=== PATIENT | female | born 1965 | race African-American/Black ===

== ENCOUNTER 2023-04-08 04:06 | Day surgery (SDC) | payer OTHER ==
[2023-04-03 12:24] VITALS: BMI 31.8
[2023-04-08] MEDS ORDERED: PROPOFOL 20 ML ONE ×2 (07:17→08:07)
[2023-04-08] MEDS ORDERED: SUCCINYLCHOLINE CHLORIDE 200 MG/10 ML SYRINGE ONE (07:17)
[2023-04-08] MEDS ORDERED: ONDANSETRON 4 MG/2 ML VIAL ONE (07:18)
[2023-04-08] MEDS ORDERED: SODIUM CHLORIDE 0.9% P/F 10 ML VIAL IJ ONE (07:18)
[2023-04-08] MEDS ORDERED: ceFAZolin SODIUM 1 GM VIAL ONE (07:18)
[2023-04-08] MEDS ORDERED: LIDOCAINE HCL/PF 2% SDV 5ML VIAL ONE ×2 (07:18→08:08)
[2023-04-08] MEDS ORDERED: DEXAMETHASONE SOD PHOSPHATE 4 MG/1 ML VIAL ONE (07:18)
[2023-04-08] MEDS ORDERED: MIDAZOLAM HCL 2 MG/2 ML SINGLE DOSE VIAL ONE (07:40)
[2023-04-08] MEDS ORDERED: SEVOFLURANE 250 ML BTL ONE (07:51)
[2023-04-08] MEDS ORDERED: ACETAMINOPHEN INJECTION 100 ML IVPB ONE (07:51)
[2023-04-08] MEDS ORDERED: KETOROLAC TROMETHAMINE 30 MG/1 ML VIAL ONE (07:56)
[2023-04-08] MEDS ORDERED: FUROSEMIDE 40 MG/4 ML INJECTABLE VIAL ONE (08:02)
[2023-04-08] MEDS ORDERED: LABETALOL HCL 20 MG/4 ML VIAL ONE (08:02)
[2023-04-08] MEDS ORDERED: ePHEDrine SULFATE 50 MG/1 ML AMPULE ONE (08:06)
[2023-04-08] MEDS ORDERED: oxyCODONE HCL 5 MG TABLET PO PRN ×2 (08:23→08:33)
[2023-04-08] MEDS ORDERED: DEXTROSE 5%-0.45% SALINE 1,000 ML IV SCH (08:30)
[2023-04-08] MEDS ORDERED: ONDANSETRON 4 MG/2 ML VIAL IVPUSH PRN (08:33)
[2023-04-08] MEDS: LACTATED RINGERS SOLUTION 1,000 ML IV SCH (09:24)
[2023-04-08 09:38] VITALS: BP 114/74; PULSE 92; RESP 18; TEMP 97.8
== END 2023-04-08 10:26 | disposition home or self-care (01) ==
LOC: JASU-SURG 04:06
PROVIDERS: ATTEND Urology
PROC: 0T778DZ Dilation of Left Ureter with Intraluminal Device, Via Natural or Artificial Opening Endoscopic (ICD-10-PCS; 2023-04-08)
PROC: 0TC78ZZ Extirpation of Matter from Left Ureter, Via Natural or Artificial Opening Endoscopic (ICD-10-PCS; principal; 2023-04-08 07:30)
DX: N20.1 Calculus of ureter (principal); N13.5 Crossing vessel and stricture of ureter without hydronephrosis
CPT/HCPCS: 36415; 76000-TC-FY; 82360; 94760; C1758; C1769; C2617; J0131